=== PATIENT | female | born 2000 | race Caucasian/White ===

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

== ENCOUNTER 2019-01-12 07:29 | Emergency (ER) | payer BC ==
[~2019-01-12] VITALS: Ht 154.9 cm; Wt 109.1 kg
[2019-01-12 07:32] VITALS: Ht 154.9 cm; Wt 109.1 kg
[2019-01-12 08:01] LABS: BASOPHILS 0.4 % (0-2); EOSINOPHILS 1.1 % (0-7); HEMATOCRIT 39.2 % (36.0-48.0); HEMOGLOBIN 13.4 g/dL (12-16); IMMATURE GRANULOCYTES 0.1 % (0-5); LYMPHOCYTES 25.1 % (15-50); MCH 28.5 pg (26.0-34.0); MCHC 34.2 g/dL (31.0-37.0); MCV 83.2 fL (80.0-100.0); MEAN PLATELET VOLUME 10.8 fL (7.4-10.4); MONOCYTES 6.3 % (2-11); PLATELET COUNT 271 10x3/uL (130-400); RBC 4.71 10x6/uL (4.00-5.40); RDW 14.1 % (11.5-14.5)
[2019-01-12 08:08] LABS: HCG SERUM POSITIVE (NEGATIVE)
[2019-01-12 08:12] LABS: APPEARANCE CLOUDY (CLEAR); BILIRUBIN NEGATIVE (NEGATIVE); COLOR YELLOW (YELLOW); GLUCOSE NEGATIVE (NEGATIVE); KETONE LARGE mg/dL (NEGATIVE); NITRITE NEGATIVE (NEGATIVE); PROTEIN TRACE mg/dL (NEGATIVE); SPECIFIC GRAVITY 1.025 (1.005-1.020); UROBILINOGEN NORMAL (NORMAL)
[2019-01-12 08:13] LABS: BACTERIA MANY /hpf (NONE SEEN); EPITHELIAL CELLS 25-50 /hpf (0-5); MUCUS <1+ /lpf (NONE SEEN); RED CELLS - URINE 0-5 /hpf (0-5)
[2019-01-12 08:15] LABS: ALBUMIN 3.8 g/dL (3.4-5.0); ALKALINE PHOSPHATASE 49 U/L (46-116); ALT (SGPT) 14 U/L (10-68); BILIRUBIN - TOTAL 0.59 mg/dL (0.2-1.3); CALC OSMOLALITY 273 mosm/kg (275-300); CALCIUM 8.7 mg/dL (8.5-10.1); CARBON DIOXIDE 17.4 mmol/L (21.0-32.0); CHLORIDE - SERUM 104 mmol/L (98-107); CREATININE - SERUM 0.6 mg/dL (0.6-1.3); GLUCOSE 86 mg/dL (74-106); POTASSIUM - SERUM 3.1 mmol/L (3.5-5.1); PROTEIN - SERUM 7.8 g/dL (6.4-8.2); SODIUM 139 mmol/L (136-145); UREA NITROGEN 4 mg/dL (7-18); eGFR NON AFRICAN AMERICAN > 90 mL/min (90-120)
[2019-01-12] MEDS ORDERED: ZOFRAN ODT4 MG/UDTAB PO (09:05)
[2019-01-12 09:25] VITALS: BP 112/69
== END 2019-01-12 09:23 | disposition home or self-care (01) ==
LOC: D.ER 07:29
PROVIDERS: Emergency Medicine
DX: R11.0 Nausea (principal); Z32.01 Encounter for pregnancy test, result positive; E87.6 Hypokalemia

== ENCOUNTER 2019-02-19 23:17 | Emergency (ER) | payer BC ==
[~2019-02-19] VITALS: Ht 154.9 cm; Wt 97.7 kg
[~2019-02-19 23:17] MED LIST changes: +ZOFRAN ODT4 MG/UDTAB PO
[2019-02-19 23:24] VITALS: Ht 154.9 cm; Wt 97.7 kg
[2019-02-19 23:38] LABS: APPEARANCE CLEAR (CLEAR); BILIRUBIN NEGATIVE (NEGATIVE); COLOR YELLOW (YELLOW); GLUCOSE NEGATIVE (NEGATIVE); KETONE NEGATIVE (NEGATIVE); NITRITE NEGATIVE (NEGATIVE); PROTEIN NEGATIVE (NEGATIVE); UROBILINOGEN NORMAL (NORMAL)
[2019-02-19 23:47] LABS: HEMATOCRIT 34.1 % (36.0-48.0); HEMOGLOBIN 11.9 g/dL (12-16); LYMPHOCYTES 31.8 % (15-50); MCH 28.6 pg (26.0-34.0); MCHC 34.9 g/dL (31.0-37.0); MEAN PLATELET VOLUME 10.3 fL (7.4-10.4); NEUTROPHILS 61.3 % (40-80); PLATELET COUNT 243 10x3/uL (130-400); RBC 4.16 10x6/uL (4.00-5.40); RDW 13.4 % (11.5-14.5); WBC 11.4 10x3/uL (4.8-10.8)
[2019-02-20] LABS: ALBUMIN 3.2 g/dL (3.4-5.0); ALKALINE PHOSPHATASE 46 U/L (46-116); ALT (SGPT) 17 U/L (10-68); BILIRUBIN - TOTAL 0.18 mg/dL (0.2-1.3); CALC OSMOLALITY 272 mosm/kg (275-300); CALCIUM 8.7 mg/dL (8.5-10.1); CARBON DIOXIDE 23.2 mmol/L (21.0-32.0); CHLORIDE - SERUM 101 mmol/L (98-107); CREATININE - SERUM 0.6 mg/dL (0.6-1.3); GLUCOSE 93 mg/dL (74-106); POTASSIUM - SERUM 3.5 mmol/L (3.5-5.1); PROTEIN - SERUM 7.2 g/dL (6.4-8.2); SODIUM 137 mmol/L (136-145); UREA NITROGEN 9 mg/dL (7-18); eGFR NON AFRICAN AMERICAN > 90 mL/min (90-120)
[2019-02-20 00:22] LABS: HCG - QUANTITATIVE (MATERNAL) 53013 mIU/mL
[2019-02-20 02:11] VITALS: BP 118/76
== END 2019-02-20 02:11 | disposition home or self-care (01) ==
LOC: D.ER 23:17
PROVIDERS: Emergency Medicine
DX: O26.891 Other specified pregnancy related conditions, first trimester (principal); R10.9 Unspecified abdominal pain; O99.321 Drug use complicating pregnancy, first trimester; F12.90 Cannabis use, unspecified, uncomplicated; Z3A.11 11 weeks gestation of pregnancy

== ENCOUNTER 2019-03-29 15:09 | Emergency (ER) | payer BC ==
[2019-03-29 15:14] VITALS: BMI 41.6
[2019-03-29 15:37] LABS: APPEARANCE TURBID (CLEAR); BILIRUBIN NEGATIVE (NEGATIVE); COLOR YELLOW (YELLOW); GLUCOSE NEGATIVE (NEGATIVE); KETONE NEGATIVE (NEGATIVE); NITRITE NEGATIVE (NEGATIVE); PROTEIN TRACE mg/dL (NEGATIVE); SPECIFIC GRAVITY 1.015 (1.005-1.020); UROBILINOGEN NORMAL (NORMAL)
[2019-03-29 15:40] LABS: BACTERIA MANY /hpf (NONE SEEN); RED CELLS - URINE 0-5 /hpf (0-5)
[2019-03-29 15:46] LABS: BASOPHILS 0.2 % (0-2); EOSINOPHILS 1.6 % (0-7); HEMATOCRIT 35.2 % (36.0-48.0); HEMOGLOBIN 12.1 g/dL (12-16); IMMATURE GRANULOCYTES 0.4 % (0-5); LYMPHOCYTES 24.6 % (15-50); MCHC 34.4 g/dL (31.0-37.0); MCV 84.4 fL (80.0-100.0); MEAN PLATELET VOLUME 10.4 fL (7.4-10.4); MONOCYTES 5.9 % (2-11); NEUTROPHILS 67.3 % (40-80); PLATELET COUNT 224 10x3/uL (130-400); RBC 4.17 10x6/uL (4.00-5.40); RDW 14.2 % (11.5-14.5); WBC 12.7 10x3/uL (4.8-10.8)
[2019-03-29] MEDS ORDERED: KEFLEX500 MG PO (15:54)
[2019-03-29] MEDS ORDERED: TYLENOL W/CODEI1 TAB PO (15:55)
[2019-03-29 16:06] LABS: ALKALINE PHOSPHATASE 46 U/L (46-116); ALT (SGPT) 23 U/L (10-68); BILIRUBIN - TOTAL 0.24 mg/dL (0.2-1.3); CALC OSMOLALITY 273 mosm/kg (275-300); CALCIUM 8.6 mg/dL (8.5-10.1); CARBON DIOXIDE 21.5 mmol/L (21.0-32.0); CHLORIDE - SERUM 106 mmol/L (98-107); CREATININE - SERUM 0.4 mg/dL (0.6-1.3); GLUCOSE 93 mg/dL (74-106); POTASSIUM - SERUM 3.9 mmol/L (3.5-5.1); PROTEIN - SERUM 6.5 g/dL (6.4-8.2); SODIUM 138 mmol/L (136-145); UREA NITROGEN 7 mg/dL (7-18); eGFR NON AFRICAN AMERICAN > 90 mL/min (90-120)
[2019-03-29 16:29] VITALS: BP 131/87
== END 2019-03-29 16:28 | disposition home or self-care (01) ==
LOC: D.ER 15:09
PROVIDERS: Emergency Medicine
DX: O26.892 Other specified pregnancy related conditions, second trimester (principal); Z3A.16 16 weeks gestation of pregnancy; R10.9 Unspecified abdominal pain; O23.42 Unspecified infection of urinary tract in pregnancy, second trimester